=== PATIENT | male | born 1980 | race Caucasian/White ===

== ENCOUNTER 2023-01-12 07:32 | Day surgery (SDC) | payer OTHER, SELFPAY ==
[2023-01-12] VITALS (7 sets, daily range): BP systolic 94–124; BP diastolic 59–76; PULSE 75–106; RESP 16–18; TEMP 36.2–37.3; O2SAT 93–100; BMI 41.8
--- NOTE | 2023-01-12 | COLBX_PTH ---
PATIENT: CHARLETTE CARMEN Jr. LOC: EN U#:[id number] AGE/SX: 43/M ROOM: RE01/12/[address]: Dr. Karime Cruz MD : 1980 BED: DIS: 01/12/2023 SPEC #: [id number] RECD: 01/12/23 11:43 STATUS: CHLOE REQ #: [id number] ALIRIO: 01/12/23 00:[address]: Karime Cruz DEPT: SURGICAL PATHOLOGY RECD BY: Machelle Rendon ENTERED: 01/12/23 13:26 SP TYPE: COLON BX OTHR DR: Dr. Rosalba Alvarenga, Tissues: Rectum, NOS Procedures: Surgery Specimen Level IV HEADER OPERATION: Colonoscopy, biopsy PRE-OP DIAGNOSIS: Screening TISSUE SUBMITTED: Rectal polyp biopsy MICROSCOPIC DIAGNOSIS Rectal polyp, biopsy: Fragments of hyperplastic polyp. AM:mina 01/13/2023 MICROSCOPIC DESCRIPTION Slides are reviewed. GROSS DESCRIPTION Received in fixative is one container labeled with the patient's name and designated rectal polyp biopsy. The specimen consists of one irregular fragment of light mendez soft tissue that measures 0.4 x 0.4 x 0.1 cm. The specimen is totally submitted in one cassette. / SJ:rg 01/12/2023 TC:5 CPT: 48681
--- NOTE | 2023-01-12 07:43 | HP.PCM_ITS ---
HPI - General General Date of Service: 01/12/23 HPI Narrative CHARLETTE CARMEN, is a 43 M who presents for screening colonoscopy. Patient never had previous colonoscopy. Patient denies any family history of colon cancer. Patient has bowel movements daily denies any blood. Patient denies any chronic abdominal pain/nausea/vomiting/reflux. PFSH Medical History Non-smoker Home Medications NK 12/28/22 [History Last Taken Unknown] Allergy/AdvReac Type Severity Reaction Status Date / Time No Known Allergies Allergy Verified 01/11/23 08:50 Family History (Updated 12/28/22 @ 11:13 by Radha Bassett) Father Hypertension Surgical History (Updated 01/11/23 @ 08:54 by Tanya Rice) No history of previous surgery Social History Smoking Status: Never smoker Past Medical/Surgical History Planned Operation Planned Operative Procedure/s: CSCOPE Previous Hospitalizations/Surgeries HX Hospitalizations: No Any Problems With Anesthesia: No (NO SURGERY HX) You/Your Family Experience Fever (Hyperthermia) With Anes: No Cholinesterase deficiency: No Cardiovascular Hx Hypertension: No Respiratory Hx Sleep Apnea: No Hx Respiratory Tract Infection/Cold (presently): No Do You Snore Loudly (louder than talking or can be heard): Yes Do You Often Feel Tired/ Fatigued/ Sleepy Dring Daytime?: Yes Has Anyone Observed You Stop Breathing During Sleep?: No Result (for STOP score): Positive Smoking Status: Never smoker Neurological Does patient have nerve stimulator: No Reproduction : No Allergies No Known Allergies Allergy (Verified 01/11/23 08:50) Discharge Is Pt Admitted From a Assisted, or a Senior Care: No After D/C, Where Do you Plan to Go: Return Home Physical Exam Const alert, oriented x3 and no apparent distress HEENT normocephalic and head/scalp atraumatic Resp normal respiratory effort Cardio regular rate GI soft to palpation and non-tender; Negative for non-distended Palpation: Negative for guarding Extremity no clubbing, cyanosis or edema Neuro CN's II-XII intact bilaterally Psych mental status grossly normal Assessment & Plan Assessment/Plan (1) Encounter for screening for malignant neoplasm of colon: Surgery Risks - Colonoscopy I discussed with the patient the risks of the procedure: Yes Risks Include but are not Limited To: Risks include but are not limited to: Bleeding, perforation requiring further surgery, inability to complete colonoscopy requiring barium enema.
[2023-01-12] MEDS: Lactated Ringers 1,000 ML 15 ML IV (08:02)
--- NOTE | 2023-01-12 09:02 | OP.CCLET_ITS ---
01/12/2023 Rosalba Alvarenga [address] [place] [address] Re : Colonoscopy procedure for Immanuel Gallo Dear Dr. Alvarenga This procedure was performed on Thursday, January 12, 2023. My impressions and recommendations are as follows: Impressions : - One less than 5 mm polyp in the rectum, removed with a cold biopsy forceps. Resected and retrieved. - The examination was otherwise normal on direct and retroflexion views. Recommendations : - Discharge patient to home. - Resume previous diet. - Continue present medications. - Await pathology results. - Repeat colonoscopy in 5-10 years for surveillance of multiple polyps. My findings are described in the full procedure note, which is enclosed. If I can be of further assistance, please feel free to contact me at Doctor phone number(s): , Work: . Sincerely, MD Karime Khan MD 01/12/2023 9:01:14 AM This report has been signed electronically.
--- NOTE | 2023-01-12 09:02 | OP.COLON_ITS ---
Patient Name: Immanuel Gallo Procedure Date: 01/12/2023 8:34 AM Date of : 1980 Age: 43 Procedure: Colonoscopy Indications: Screening for colorectal malignant neoplasm Providers: Karime Cruz MD Referring MD: Karime Cruz MD Medicines: Monitored Anesthesia Care Patient Profile: This is a 43 year old male. Last Colonoscopy: none. The patient's first colonoscopy is today. Complications: No immediate complications. Procedure: Pre-Anesthesia Assessment: - Prior to the procedure, a History and Physical was performed, and patient medications and allergies were reviewed. The patient's tolerance of previous anesthesia was also reviewed. The risks and benefits of the procedure and the sedation options and risks were discussed with the patient. All questions were answered, and informed consent was obtained. Prior Anticoagulants: The patient has taken no anticoagulant or antiplatelet agents. ASA Grade Assessment: Per anesthesia. After reviewing the risks and benefits, the patient was deemed in satisfactory condition to undergo the procedure. After I obtained informed consent, the scope was passed under direct vision. Throughout the procedure, the patient's blood pressure, pulse, and oxygen saturations were monitored continuously. The colonoscope was introduced through the anus and advanced to the cecum, identified by the appendiceal orifice, ileocecal valve and palpation. The colonoscopy was performed without difficulty. The patient tolerated the procedure well. The quality of the bowel preparation was good. Scope In: 8:41:05 AM Scope Withdrawal Time 0 hours 6 minutes 42 seconds Scope Out: 8:56:21 AM Total Procedure Duration Time 0 hours 15 minutes 16 seconds Findings: The perianal and digital rectal examinations were normal. A less than 5 mm polyp was found in the rectum. The polyp was sessile. The polyp was removed with a cold biopsy forceps. Resection and retrieval were complete. The exam was otherwise without abnormality on direct and retroflexion views. Impression: - One less than 5 mm polyp in the rectum, removed with a cold biopsy forceps. Resected and retrieved. - The examination was otherwise normal on direct and retroflexion views. Recommendation: - Discharge patient to home. - Resume previous diet. - Continue present medications. - Await pathology results. - Repeat colonoscopy in 5-10 years for surveillance of multiple polyps. Procedure Code(s): --- Professional --- 76313, PT, Colonoscopy, flexible; with biopsy, single or multiple Diagnosis Code(s): --- Professional --- Z12.11, Encounter for screening for malignant neoplasm of colon D12.8, Benign neoplasm of rectum CPT copyright 2021 [employer]. All rights reserved. The codes documented in this report are preliminary and upon radon inspector review may be revised to meet current compliance requirements. MD Karime Khan MD 01/12/2023 9:01:14 AM This report has been signed electronically. Number of Addenda: 0 Note Initiated On: 01/12/2023 8:34 AM
== END 2023-01-12 09:50 | disposition home or self-care (01) ==
LOC: EN 07:37 → AC 07:38
PROVIDERS: PCP Internal Medicine; Referring Provider Internal Medicine; Visit Provider Surgery
PROC: 0DJD8ZZ Inspection of Lower Intestinal Tract, Via Natural or Artificial Opening Endoscopic (ICD-10-PCS; CPT 45378; principal; 2023-01-12 08:40)
DX: Z12.11 Encounter for screening for malignant neoplasm of colon (principal); Z90.49 Acquired absence of other specified parts of digestive tract; D12.8 Benign neoplasm of rectum
CPT/HCPCS: 45380; 88305; J7120; J2405